=== PATIENT | female | born 1950 | race Caucasian/White ===

== ENCOUNTER 2021-01-03 08:51 | Emergency (ER) | payer MEDICARE ==
[~2021-01-03] VITALS: Ht 154.9 cm; Wt 46.3 kg
[2021-01-03] MEDS ORDERED: NEURONTIN100 MG PO (09:02)
[2021-01-03 09:41] VITALS: BP 190/99
== END 2021-01-03 09:42 | disposition home or self-care (01) ==
LOC: M.ERS 08:51
DX: R04.0 Epistaxis (principal); Z79.899 Other long term (current) drug therapy

== ENCOUNTER → 2021-06-27 | Outpatient (CLI) | payer MEDICARE ==
[~2021-06-27] MED LIST: APAP W/CODEINE1 TA2 PO; HYDROCODON-ACE1 EAC7 PO; NEURONTIN100 MG PO
== END ==
LOC: M.RAD 06-08 14:30
PROVIDERS: ATTEND Internal Medicine
DX: M81.0 Age-related osteoporosis without current pathological fracture (principal)

== ENCOUNTER 2021-06-29 19:22 | Emergency (ER) | payer MEDICARE ==
[~2021-06-29] VITALS: Ht 154.9 cm; Wt 46.7 kg
[~2021-06-29 19:22] MED LIST changes: -APAP W/CODEINE1 TA2 PO; -HYDROCODON-ACE1 EAC7 PO
[2021-06-29] MEDS ORDERED: HYDROCODON-ACE1 EAC7 PO (20:51)
[2021-06-29] MEDS ORDERED: APAP W/CODEINE1 TA2 PO (20:59)
[2021-06-29 21:30] VITALS: BP 142/86
== END 2021-06-29 21:30 | disposition home or self-care (01) ==
LOC: M.ERS 19:22
DX: M25.562 Pain in left knee (principal); Z79.899 Other long term (current) drug therapy; Z88.2 Allergy status to sulfonamides